=== PATIENT | female | born 1975 | race Caucasian/White ===

== ENCOUNTER 2019-02-19 19:14 | Emergency (ER) | payer OTHER ==
[~2019-02-19] VITALS: Ht 152.4 cm; Wt 54.9 kg
[2019-02-19 19:57] VITALS: BP_SYST 122
[2019-02-19] MEDS ORDERED: fentaNYL CITRATE/PF 100 MCG/2 ML AMP IVP ONE (20:00)
[2019-02-19] MEDS ORDERED: ONDANSETRON HCL 4 MG/2 ML VIAL IVP ONE (20:00)
[2019-02-19 20:27] LABS: BASOPHILS # (AUTO) 0.1 K/uL (0.0-0.2); BASOPHILS % (AUTO) 0.7 % (0.0-2.0); EOSINOPHILS # (AUTO) 0.1 K/uL (0.0-0.4); EOSINOPHILS % (AUTO) 1.7 % (0.0-4.0); HEMATOCRIT 39.3 % (36-48); HEMOGLOBIN 13.3 g/dL (12.0-16.0); LYMPHOCYTES # (AUTO) 3.4 K/uL (1.0-5.5); LYMPHOCYTES % (AUTO) 42.6 % (20.5-51.5); MEAN CORPUSCULAR HEMOGLOBIN 31 pg (27-31); MEAN CORPUSCULAR HGB CONC 34 % (32-36); MEAN CORPUSCULAR VOLUME 92 fL (79.0-98.0); MONOCYTES # (AUTO) 0.7 K/uL (0.0-1.0); MONOCYTES % (AUTO) 8.4 % (1.7-9.3); NEUTROPHILS # (AUTO) 3.8 K/uL (1.8-7.7); NEUTROPHILS % (AUTO) 46.6 % (40.0-70.0); PLATELET COUNT (AUTO) 255 K/uL (130-430); RED BLOOD CELL COUNT(AUTO) 4.26 MIL/uL (4.2-6.2); RED CELL DISTRIBUTION WIDTH 12.5 % (9.0-15.0); WHITE BLOOD COUNT (AUTO) 8.1 K/uL (4.8-10.8)
[2019-02-19 20:33] LABS: CALCIUM 9.1 mg/dL (8.4-11.0); CREATININE 0.85 mg/dL (0.55-1.30); POTASSIUM 3.9 mmol/L (3.5-5.1)
[2019-02-19 20:37] LABS: INR 0.8 (0.8-1.2); PROTHROMBIN TIME 8.9 SECS (9.5-12.5)
[2019-02-19 20:38] LABS: ALBUMIN 3.9 g/dL (3.4-4.8); TOTAL BILIRUBIN 0.2 mg/dL (0.0-1.0)
[2019-02-19 21:07] LABS: ERYTHROCYTE SEDIMENTATION RATE 7 MM/HR (0-20)
[2019-02-19] MEDS ORDERED: KETOROLAC TROMETHAMINE 30 MG VIAL IVP ONE (21:30)
[2019-02-19 22:20] VITALS: BP_SYST 124
== END 2019-02-19 22:20 | disposition home or self-care (01) ==
LOC: SED 19:14
DX: R22.41 Localized swelling, mass and lump, right lower limb (principal); R10.30 Lower abdominal pain, unspecified; F17.200 Nicotine dependence, unspecified, uncomplicated; R03.0 Elevated blood-pressure reading, without diagnosis of hypertension; Z88.5 Allergy status to narcotic agent; Z88.6 Allergy status to analgesic agent; Z87.442 Personal history of urinary calculi; Z71.6 Tobacco abuse counseling
CPT/HCPCS: 36415; 80053; 81025; 85025; 85379; 85610; 85651; 85730; 93005; 93971; 96374; 96375; 99284; J1885; J2405; J3010

== ENCOUNTER 2020-04-27 20:52 | Emergency (ER) | payer OTHER ==
[~2020-04-27] VITALS: Ht 152.4 cm; Wt 56.7 kg
[2020-04-27 21:01] VITALS: BP_SYST 136
--- NOTE | 2020-04-27 21:03 | NUR ---
Patient to ER bed 4 to gown for evaluation. Side rails up. Report given to SRIKANTH XIONG.
--- NOTE | 2020-04-27 21:10 | NUR ---
pt a&o x4 c/o of bilateral wrist pain 05/16 after doing gymnastics with her nieces around 8pm. pt states she 'heard both of her wrists pop'. pts wrists appear to be swollen. pt is unable to move her wrists in any direction. pt has sensation in all fingers on both hands.
--- NOTE | 2020-04-27 21:13 | NUR ---
ER Dr. Leung at bedside examining patient.
[2020-04-27] MEDS ORDERED: ACETAMINOPHEN 500 MG TABLET PO ONE (21:30)
[2020-04-27] MEDS ORDERED: IBUPROFEN 600 MG TABLET PO ONE (21:30)
--- NOTE | 2020-04-27 21:30 | NUR ---
xray at bedside.
--- NOTE | 2020-04-27 22:30 | NUR ---
pt placed in bilateral wrist spints and placed in a sling.
[2020-04-27 22:58] VITALS: BP_SYST 128
--- NOTE | 2020-04-27 22:58 | NUR ---
Patient given written and verbal discharge instructions and verbalizes understanding. ER MD discussed with patient the results and treatment provided. Patient in stable condition. ID arm band removed. No Rx given. Patient educated on pain management and to follow up with PMD. Pain Scale 6/10. Opportunity for questions provided and answered. Medication side effect fact sheet provided.
== END 2020-04-27 22:58 | disposition home or self-care (01) ==
LOC: SED 20:52
DX: S52.592A Other fractures of lower end of left radius, initial encounter for closed fracture (principal); S52.591A Other fractures of lower end of right radius, initial encounter for closed fracture; Z88.5 Allergy status to narcotic agent; Z88.6 Allergy status to analgesic agent; Z87.442 Personal history of urinary calculi; X50.3XXA Overexertion from repetitive movements, initial encounter; Y93.43 Activity, gymnastics; Y92.89 Other specified places as the place of occurrence of the external cause; Y99.8 Other external cause status
CPT/HCPCS: 73090; 99284